=== PATIENT | female | born 1980 | race Two or more races ===

== ENCOUNTER 2025-04-25 21:29 | Emergency (ER) | payer OTHER ==
[~2025-04-25] VITALS: Ht 152.4 cm; Wt 56.7 kg
[2025-04-25] MEDS ORDERED: KETOROLAC TROMETHAMINE 30 MG VIAL IV ONE (22:00)
[2025-04-25] MEDS ORDERED: 0.9 % SODIUM CHLORIDE 1,000 ML IV SCH (22:00)
[2025-04-25 22:14] LABS: BASO % 0.3 % (0.1-1.2); EOS # 0.14 (0.04-0.54); EOS % 1.4 % (0.7-7.0); LYMPH # 1.68 (1.18-3.74); LYMPH % 16.8 % (19.3-53.1); MEAN CORPUSCULAR HEMOGLOBIN 26.6 pg (25.6-32.2); MONO # 0.68 (0.24-0.82); MONO % 6.8 % (4.7-12.5); NEUT # 7.44 (1.56-6.13); NEUT % 74.5 % (34.0-71.1); PLATELET COUNT 310 K/uL (163-369); RED BLOOD COUNT 4.51 M/uL (3.93-5.22); RED CELL DISTRIBUTION WIDTH 14.8 % (11.6-14.4)
[2025-04-25 22:18] LABS: URINE APPEARANCE Turbid; URINE BILIRRUBIN Small (NEGATIVE); URINE BLOOD Moderate; URINE COLOR Red; URINE GLUCOSE Negative (NEGATIVE); URINE KETONE Negative (NEGATIVE); URINE LEUKOCYTE Large; URINE NITRATE Positive; URINE UROBILINOGEN 0.2 E.U./dl
[2025-04-25 22:19] LABS: URINE BACTERIA 1512.8 uL (0.0-1933); URINE EPITHELIAL CELLS 10.2 uL (0.0-38.8)
[2025-04-25 22:20] LABS: URINE PROTEIN 300 (NEGATIVE); URINE RBC > 10558.9 uL (0.0-20.8)
[2025-04-25] MEDS ORDERED: CEFTRIAXONE SODIUM 2,000 MG VIAL ONE (22:34)
[2025-04-25 22:36] LABS: ALBUMIN 3.9 gm/dL (3.4-5.0); BILIRUBIN TOTAL 0.27 mg/dL (0.3-1.2); CALCIUM 9.9 mg/dL (8.5-10.1); CREATININE SERUM 0.94 mg/dL (0.55-1.02); GFR 64.39; GLOBULINA 3.7 G/DL (2.4-3.5); POTASSIUM 3.68 mEq/L (3.5-5.1); TOTAL PROTEIN 7.6 gm/dL (6.4-8.2)
[2025-04-25] MEDS ORDERED: CEFTRIAXONE SODIUM 2,000 MG VIAL IV ONE (22:45)
[2025-04-25] MEDS ORDERED: PYRIDIUM200 MG PO (23:26)
[2025-04-25] MEDS ORDERED: CEPHALEXIN500 M1 PO (23:26)
== END 2025-04-25 23:37 | disposition home or self-care (01) ==
LOC: ER 21:29
PROVIDERS: General Practice
DX: N39.0 Urinary tract infection, site not specified (principal)